=== PATIENT | female | born 1960 | race Caucasian/White ===

== ENCOUNTER 2022-06-19 12:05 | Emergency (ER) | payer MEDICAID ==
[2022-06-19] MEDS: Ondansetron 4 MG Tab.DIS PO ONE (12:32)
[2022-06-19] MEDS: Acetaminophen 325 MG Tab PO ONE (12:33)
== END 2022-06-19 13:20 | disposition home or self-care (01) ==
LOC: KA.ED 12:05
DX: S06.0X0A Concussion without loss of consciousness, initial encounter (principal); Z79.82 Long term (current) use of aspirin; W00.0XXA Fall on same level due to ice and snow, initial encounter
CPT/HCPCS: 70450; 99284; A9270-GY